=== PATIENT | female | born 2000 | race Caucasian/White ===

== ENCOUNTER 2019-06-10 13:08 | Outpatient (CLI) | payer SELFPAY | END 2019-06-10 13:09 | disposition home or self-care (01) | LOC: SPT 13:08 | PROVIDERS: Family Provider Nurse Practitioner; Visit Provider Orthopaedic Surgery | DX: Z46.89 Encounter for fitting and adjustment of other specified devices (principal); S82.141D Displaced bicondylar fracture of right tibia, subsequent encounter for closed fracture with routine healing; X58.XXXD Exposure to other specified factors, subsequent encounter | CPT/HCPCS: L1832 ==

== ENCOUNTER → 2019-06-25 08:12 | Outpatient (BNVA) | payer SELFPAY | PROVIDERS: Family Provider Nurse Practitioner; Visit Provider Orthopaedic Surgery | DX: M79.671 Pain in right foot (principal); M25.571 Pain in right ankle and joints of right foot; S82.141A Displaced bicondylar fracture of right tibia, initial encounter for closed fracture; S82.401A Unspecified fracture of shaft of right fibula, initial encounter for closed fracture; X58.XXXA Exposure to other specified factors, initial encounter | CPT/HCPCS: 73562; 73610; 73630 ==

== ENCOUNTER → 2019-07-09 09:51 | Outpatient (BNVA) | payer SELFPAY | PROVIDERS: Family Provider Nurse Practitioner; Visit Provider Orthopaedic Surgery | DX: S82.141A Displaced bicondylar fracture of right tibia, initial encounter for closed fracture (principal); M79.673 Pain in unspecified foot; M25.579 Pain in unspecified ankle and joints of unspecified foot; X58.XXXA Exposure to other specified factors, initial encounter | CPT/HCPCS: 73562 ==

== ENCOUNTER → 2024-05-04 11:52 | Outpatient (BNVA) | payer BC, MEDICAID, SELFPAY | PROVIDERS: Family Provider Nurse Practitioner; Visit Provider Nurse Practitioner Women's Health | DX: N92.6 Irregular menstruation, unspecified (principal) | CPT/HCPCS: 82670; 83001; 83002; 83036; 83525; 84146; 84402; 84403; 84443; 84702 ==

== ENCOUNTER → 2024-05-18 11:07 | Outpatient (BNVA) | payer BC, MEDICAID, SELFPAY | PROVIDERS: Family Provider Nurse Practitioner; Visit Provider Nurse Practitioner Women's Health | DX: N92.6 Irregular menstruation, unspecified (principal) | CPT/HCPCS: 76830 ==

== ENCOUNTER → 2024-08-23 09:14 | Outpatient (BNVA) | payer BC, MEDICAID, SELFPAY | PROVIDERS: Family Provider Nurse Practitioner; Visit Provider Nurse Practitioner Women's Health | DX: E28.2 Polycystic ovarian syndrome (principal) | CPT/HCPCS: 84402; 84403 ==

== ENCOUNTER → 2024-11-18 12:45 | Outpatient (BNVA) | payer MEDICAID, SELFPAY | PROVIDERS: Family Provider Nurse Practitioner; Visit Provider Nurse Practitioner Women's Health | DX: Z12.4 Encounter for screening for malignant neoplasm of cervix (principal) | CPT/HCPCS: 87624 ==

== ENCOUNTER 2024-12-24 17:32 | Emergency (ER) | payer SELFPAY ==
[2024-12-24 18:15] VITALS: BP 121/70; PULSE 70; RESP 18; TEMP 36.7; O2SAT 99
--- NOTE | 2024-12-24 19:41 | CTR_ITS ---
PROCEDURE INFORMATION: Exam: CT Abdomen And Pelvis With Contrast Exam date and time: 12/24/2024 8:45 PM Age: 24 years old Clinical indication: Abdominal pain; Generalized; C/O diffuse abd pain; Additional info: Diffuse 8/10 abd pain TECHNIQUE: Imaging protocol: Computed tomography of the abdomen and pelvis with contrast. Radiation optimization: All CT scans at this facility use at least one of these dose optimization techniques: automated exposure control; mA and/or kV adjustment per patient size (includes targeted exams where dose is matched to clinical indication); or iterative reconstruction. Contrast material: OMNI 350; Contrast volume: 100 ml; Contrast route: INTRAVENOUS (IV); COMPARISON: US transvaginal [id number] 05/18/2024 11:18 AM RADIATION DOSE METRICS: Total DLP (mGy-cm): 486.31 FINDINGS: Liver: No discrete liver lesions are apparent. Smooth hepatic contour. Gallbladder and biliary ducts: Heterogeneous appearance of the gallbladder lumen suggesting gallstones and/or sludge. No gallbladder distension however. Pancreas: No evidence of pancreatitis. No ductal dilation. Spleen: Spleen appears mildly prominent measuring 13.2 cm on coronal imaging. Adrenal glands: Adrenal glands are within expected limits. Kidneys and ureters: Left renal cortical cyst measuring 1.5 cm. Smaller subcentimeter foci too small to characterize. Tiny nonobstructive calculus at the lower pole of the left kidney. Right kidney is unremarkable. No ureteral stones or hydronephrosis. Stomach and bowel: Small bowel is normal caliber. No obstruction. Large bowel within normal limits. No inflammatory wall thickening or abnormal bowel dilatation. Appendix: No evidence of appendicitis. Intraperitoneal space: No free air. No significant fluid collection. Vasculature: No abdominal aortic aneurysm. Lymph nodes: No pathologically enlarged lymph nodes by CT size criteria. Urinary bladder: Unremarkable as visualized. Reproductive: Unremarkable as visualized. Bones/joints: No acute osseous abnormalities. Soft tissues: Unremarkable. CT/CT abdomen pelvis w con* [id number] IMPRESSION: 1. No acute abdominal or pelvic abnormalities are identified to explain patient's symptoms. 2. Mild splenomegaly. 3. Cholelithiasis or gallbladder sludge. 4. Nonobstructive left nephrolithiasis.
[2024-12-24 19:42] VITALS: BP 119/96; PULSE 82; RESP 16; O2SAT 100
--- NOTE | 2024-12-24 19:45 | W.ED.ABDPA2 ---
HPI - Abdominal Pain General: Chief Complaint: Abdominal Pain Stated Complaint: abd pain pcp sent Time Seen by Provider: 12/24/24 19:27 Source: patient Mode of arrival: ambulatory Limitations: no limitations History of Present Illness: Patient is a 24-year-old female with no pertinent past medical history reporting to emergency department planing of diffuse abdominal pain for the past 2 weeks. States it is currently an 8/10 but will be a 20/10 with any ambulation. States overall it has been intermittent but today has become more constant. Denies any previous abdominal surgeries. Notes that she started having diarrhea today, no bloody stools. No urinary symptoms or vaginal bleeding/discharge. She states that her last normal menstrual period was beginning of this month and was regular. States there might be possibility of however her home tests have been negative. Pain reported to be all over, no specific point tenderness and no radiation to her back. She is noting some occasional chest pain or shortness of breath. Denies any fever, chills, vomiting, or any symptoms otherwise. Her vitals are stable at this time, she is afebrile and nontoxic-appearing. MD elicited complaint: abdominal pain Pertinent past history: none Onset (ago): week(s) Pain Consistency: intermittent (Has been constant today) Location: Diffuse Severity: severe Pain scale (0-10): 8 Exacerbating factors: movement Associated Symptoms: Reports diarrhea; Denies bloating, chills, constipation, dysuria, fever(s), hematochezia, nausea and vomiting Related Data Previous Rx's ?Medication ?Instructions ?Recorded Zafemy 150 mcg-35 mcg/24 hr 1 patch transdermal Q7D #3 ea 11/18/24 transdermal patch (norelgestromin-ethin.estradiol) ondansetron 4 mg disintegrating 4 mg PO TID PRN nausea and 12/24/24 tablet vomiting #30 tabs Allergies Allergy/AdvReac Type Severity Reaction Status Date / Time No Known Allergies Allergy Verified 11/18/24 11:27 Review of Systems General: Reports: 10 or more systems reviewed and unremarkable except in HPI and below Const: Denies: fever(s), chills, change in appetite, change in weight or diaphoresis ENMT: Denies: throat pain or hoarseness Card: Reports: chest pain; Denies: palpitations or lightheadedness Resp: Reports: dyspnea; Denies: productive cough or wheezing GI: Reports: abdominal pain and diarrhea; Denies: nausea, vomiting, constipation, bloating or hematochezia : Denies: flank pain, difficulty voiding, dysuria, urinary frequency, urinary urgency, vaginal bleeding, vaginal discharge or irregular period Musc: Denies: neck pain or back pain Skin/Breast: Denies: rash or new lesions Neuro: Denies: headache(s) or dizziness PFSH ED PFSH: Medical History No pertinent past medical history neghx: htn, dm, thyroid, dvt/pe PCP: Nate Closed fracture of right tibial plateau Family History Denies family history of Colon cancer Ovarian cancer Diabetes Heart disease Breast cancer Hypertension Uterine cancer Thyroid disease Stroke Social History Smoking and tobacco/nicotine status: current some day tobacco/nicotine user (vape) Alcohol intake: never Substance/Drug Use: never Physical Exam Const: COMMON NORMALS: no acute distress, average body habitus, patient oriented x3, no limitations, healthy appearing, alert and well nourished GENERAL APPEARANCE: cooperative and comfortable ORIENTATION/CONSCIOUSNESS: Yes awake Neck/C-Spine: COMMON NORMALS: full ROM, supple and no meningeal signs Resp: COMMON NORMALS: normal respiratory effort, No retractions, No use of accessory muscles and clear to auscultation bilaterally AUSCULTATION: clear to auscultation bilaterally, no crackles, no rales, no rhonchi and no wheezes Cardio: COMMON NORMALS: regular rate, regular rhythm, No gallops present (Cardio), No clicks present (Cardio), No murmurs present (Cardio), No rub (Cardio) and Peripheral pulses 2+ throughout RATE: regular rate RHYTHM: regular rhythm PERIPHERAL PULSES: Peripheral pulses 2+ throughout GI: COMMON NORMALS: Normal to inspection, nondistended, normoactive bowel sounds present, Soft to palpation, No hepatosplenomegaly present and no masses AUSCULTATION: Yes normoactive bowel sounds PALPATION: Yes Soft to palpation, No Guarding due to palpation present (GI), No Rigid due to palpation and Yes No hepatosplenomegaly present RECTAL EXAM: deferred OTHER: Mild diffuse nonspecific tenderness to palpation Extremity: COMMON NORMALS: normal to inspection and full ROM Neuro: COMMON NORMALS: patient oriented x3, moves all extremities, no focal motor deficits and no sensory deficits noted SENSORIUM/ORIENTATION: Yes alert MENINGEAL SIGNS: Yes no meningeal signs Psych: COMMON NORMALS: mental status grossly normal, cooperative and speech normal SPEECH: Yes normal speech Skin: COMMON NORMALS: no rashes or lesions noted GENERAL SKIN EXAM: no rashes or lesions noted Course Vital Signs: Vital signs: Vital Signs Temperature 98.0 F 12/24/24 18:15 Pulse Rate 82 12/24/24 19:42 Respiratory Rate 16 12/24/24 21:00 Blood Pressure 129/75 12/24/24 21:00 Pulse Oximetry 97 12/24/24 21:00 Oxygen Delivery Me thod Room Air 12/24/24 21:00 MDM - Abdominal Pain Medical Decision Making Patient presented with diffuse abdominal pain for a couple of weeks, started having diarrhea today. Physical exam overall is unremarkable, some mild nonspecific tenderness palpation on exam but vitals have been stable she is nontoxic-appearing. No fevers or chills. No active vomiting here in the emergency department. All of her lab work was unremarkable, and abdomen/pelvis CT does not demonstrate any acute findings to explain her pain. I do not suspect this is an acute emergent process and she will be allowed discharge home. Encouraged to follow-up with primary care if she has persistence of symptoms and to return with any new or worsening. Lab Data 12/24/24 19:41 12/24/24 19:41 Labs/Radiology: Radiology Impressions Abdomen/Pelvis CT 12/24/24 19:41 IMPRESSION: 1. No acute abdominal or pelvic abnormalities are identified to explain patient's symptoms. 2. Mild splenomegaly. 3. Cholelithiasis or gallbladder sludge. 4. Nonobstructive left nephrolithiasis. Laboratory Results WBC 6.08 10^3/uL (3.29-11.43) 12/24/24 19:41 RBC 4.62 10^6/uL (3.85-5.65) 12/24/24 19:41 Hgb 13.20 g/dL (11.27-16.99) 12/24/24 19:41 Hct 40.1 % (36-47) 12/24/24 19:41 MCV 86.8 fl (85-98) 12/24/24 19:41 MCH 28.6 pg (27-33) 12/24/24 19:41 MCHC 32.9 g/dL (30-55) 12/24/24 19:41 RDW 12.4 % (12.1-15.1) 12/24/24 19:41 Plt Count 220 10^3/cmm (157-399) 12/24/24 19:41 MPV 10.8 fL (7.4-10.4) H 12/24/24 19:41 Neut % (Auto) 50.6 % 12/24/24 19:41 Lymph % (Auto) 38.0 % 12/24/24 19:41 [place] % (Auto) 7.9 % 12/24/24 19:41 Eos % (Auto) 2.6 % 12/24/24 19:41 Baso % (Auto) 0.7 % 12/24/24 19:41 Neut # (Auto) 3.08 10^3/uL (1.8-7.7) 12/24/24 19:41 Lymph # (Auto) 2.3 10^3/uL (0.8-4.8) 12/24/24 19:41 [place] # (Auto) 0.5 10^3/uL (0.2-0.9) 12/24/24 19:41 Eos # (Auto) 0.2 10^3/uL (0.0-0.8) 12/24/24 19:41 Baso # (Auto) 0.0 10^3/uL (0.0-0.1) 12/24/24 19:41 Nucleated RBC % (auto) 0 % 12/24/24 19:41 Nucleated RBCs # 0.0 /100WBC 12/24/24 19:41 Sodium 140 mmol/L (136-145) 12/24/24 19:41 Potassium 3.8 mmol/L (3.5-5.1) 12/24/24 19:41 Chloride 103 mmol/L (98-107) 12/24/24 19:41 Carbon Dioxide 25 mmol/L (22-29) 12/24/24 19:41 Anion Gap 15.8 (5-19) 12/24/24 19:41 BUN 15 mg/dL (6-20) 12/24/24 19:41 Creatinine 0.9 mg/dL (0.5-0.9) 12/24/24 19:41 GFR Calculation 75.7 mL/min (90-130) L 12/24/24 19:41 Glucose 90 mg/dL (65-115) 12/24/24 19:41 Calculated Osmolality 290 mOsm/kg (285-295) 12/24/24 19:41 Calcium 9.7 mg/dL (8.5-10.5) 12/24/24 19:41 Total Bilirubin 0.4 mg/dL (0.15-1.2) 12/24/24 19:41 AST 18 U/L (0-32) 12/24/24 19:41 ALT 17 U/L (0-33) 12/24/24 19:41 Alkaline Phosphatase 99 U/L (35-105) 12/24/24 19:41 Total Protein 7.6 g/dL (6.6-8.7) 12/24/24 19:41 Albumin 4.8 g/dL (3.5-5.2) 12/24/24 19:41 Globulin 2.8 g/dL (1.3-4.6) 12/24/24 19:41 Lipase 31 U/L (13-60) 12/24/24 19:41 HCG, Qual Negative (Negative) 12/24/24 19:41 Urine Color Yellow (Yellow) 12/24/24 19:52 Urine Appearance Clear (CLEAR) 12/24/24 19:52 Urine pH 6.5 (5-7) 12/24/24 19:52 Ur Specific [place] 1.019 (1.005-1.030) 12/24/24 19:52 Urine Protein Negative (Negative) 12/24/24 19:52 Urine Glucose (UA) Negative (Normal) 12/24/24 19:52 Urine Ketones Negative (Negative) 12/24/24 19:52 Urine Blood Negative (Negative) 12/24/24 19:52 Urine Nitrate Negative (Negative) 12/24/24 19:52 Urine Bilirubin Negative (Negative) 12/24/24 19:52 Urine Urobilinogen 1.0 mg/dL (Negative) 12/24/24 19:52 Ur Leukocyte Esterase Negative (Negative) 12/24/24 19:52 Urine RBC 0-2 /hpf (0-2) 12/24/24 19:52 Urine WBC 0-5 /hpf (0-5) 12/24/24 19:52 Ur Squamous Epith Cells 0-5 /hpf (0-5) 12/24/24 19:52 Amorphous Sediment Not Reportable 12/24/24 19:52 Urine Bacteria None seen /hpf (NONE) 12/24/24 19:52 Hyaline Casts 0-4 /lpf H 12/24/24 19:52 All radiology interpretation(s) finalized by discharge Discharge Plan Discharge Patient Disposition: Home Clinical Impression: Abdominal pain Condition: Stable Prescriptions: New ondansetron 4 mg tablet,disintegrating 4 mg PO TID PRN (Reason: nausea and vomiting) Qty: 30 0RF No Action norelgestromin-ethin.estradiol [Zafemy] 150-35 mcg/24 hr patch weekly 1 patch transdermal Q7D Qty: 3 10RF Rx Instructions: apply once weekly for 3 weeks of a 4-week cycle Discharge Orders: Discharge ED (Routine); Ordered 12/24/24 Ordered By: Ambrosio Hale Referrals: Melony Borden NP [Primary Care Provider, Unknown] Patient Instructions: Patient Portal & Emeka Instructions Activity Restrictions/Additional Instructions: Abdominal Pain Discharge You are being discharged today after evaluation for abdominal pain. Your tests, including blood work and a CT scan, did not show any urgent or dangerous problems. At this time, your pain is considered nonspecific, meaning no clear cause was found, which is common and often resolves with time. Medications: - You have been prescribed ondansetron (Zofran) for nausea. Take as directed. If you have questions about your medication, contact your pharmacy or provider. What to Expect: - Your pain may continue for a while but should gradually improve. - Most cases of nonspecific abdominal pain do not require surgery and resolve with supportive care Follow-Up: - Please schedule an appointment with your primary care provider within the next week for further evaluation and ongoing management. - If your symptoms persist or worsen, your provider may consider additional tests or referrals. Return to the Emergency Department Immediately If You Develop: - Severe or worsening abdominal pain - Persistent vomiting or inability to keep fluids down - Fever (temperature above 100.4?F/38?C) - Blood in your stool or vomit - New chest pain, shortness of breath, or fainting - Yellowing of the skin or eyes (jaundice) - Swelling or severe tenderness of the abdomen - Any other symptoms that concern you or feel different from your usual pain General Advice: - Rest and stay hydrated. - Eat small, bland meals as tolerated. - Avoid alcohol and non-prescribed medications. - Keep a record of your symptoms to share with your provider. If you have any questions or concerns, do not hesitate to contact your healthcare provider. Print Language: Nauruan Coding Level of Care Code ED Chinese Language Professor for Ania Marroquin
[2024-12-24 19:58] LABS: Hematocrit 40.1 % (36-47); Hemoglobin 13.20 g/dL (11.27-16.99); Mean Corpuscular HGB Conc 32.9 g/dL (30-55); Mean Corpuscular Hemoglobin 28.6 pg (27-33); Mean Corpuscular Volume 86.8 fl (85-98); Nucleated Red Blood Cells % 0 %; Platelet Count 220 10^3/cmm (157-399); Red Blood Count 4.62 10^6/uL (3.85-5.65); White Blood Count 6.08 10^3/uL (3.29-11.43)
[2024-12-24 20:03] LABS: Glucose Urine UA Negative (Normal); Nitrate Urine Negative (Negative); Specific Gravity, Urine 1.019 (1.005-1.030)
[2024-12-24 20:08] LABS: Add Urine Microscopic? YES
[2024-12-24 20:16] LABS: Alanine Aminotransferase 17 U/L (0-33); Albumin Level 4.8 g/dL (3.5-5.2); Alkaline Phosphatase 99 U/L (35-105); Anion Gap 15.8 (5-19); Aspartate Amino Transferase 18 U/L (0-32); Blood Urea Nitrogen 15 mg/dL (6-20); Calcium 9.7 mg/dL (8.5-10.5); Carbon Dioxide 25 mmol/L (22-29); Chloride 103 mmol/L (98-107); Creatinine Clr Calc Pharmacy 95.2019; Globulin 2.8 g/dL (1.3-4.6); Glucose 90 mg/dL (65-115); Lipase 31 U/L (13-60); Osmolality Calculated 290 mOsm/kg (285-295); Potassium 3.8 mmol/L (3.5-5.1); Sodium 140 mmol/L (136-145); Total Protein 7.6 g/dL (6.6-8.7)
[2024-12-24 20:26] LABS: HCG, Serum Qual Negative (Negative)
[2024-12-24] MEDS: iohexol 350 mg/mL 500 mL Btl (per mL) IV (20:47)
[2024-12-24 21:00] VITALS: BP 129/75; RESP 16; O2SAT 97
[2024-12-24 21:46] VITALS: BP 107/60; PULSE 75; RESP 16; O2SAT 100
== END 2024-12-24 21:41 | disposition home or self-care (01) ==
PROVIDERS: Emergency Provider Physician Assistant; PCP Nurse Practitioner Family
DX: R10.9 Unspecified abdominal pain (principal); F17.290 Nicotine dependence, other tobacco product, uncomplicated
CPT/HCPCS: 36415; 74177; 80053; 81001; 83690; 84703; 85025; 99285

== ENCOUNTER 2025-02-28 07:39 | Outpatient (CLI) | payer SELFPAY ==
--- NOTE | 2025-02-28 07:50 | US_ITS ---
WS: [id number] Complete ABDOMINAL ULTRASOUND HISTORY: ABDOMINAL PAIN/GERD COMPARISON: CT 12/24/2024 Liver: 12.7 cm in length. Normal size liver and echogenicity. No bile duct dilatation or mass. Portal Vein: Normal hepatopetal flow with monophasic waveform. Gallbladder: Numerous stones within the gallbladder. Lumen is filled with stones. No pericholecystic fluid. No gallbladder wall thickening. CBD: 0.2 cm Pancreas: Limited. Unremarkable as visualized. Right kidney: 9.3 cm x 5.1 x 3.8 cm. Cortex:1.0 cm. Normal size and echogenicity. No hydronephrosis or mass. Left kidney: 9.6 cm x 4.4 cm x 3.8 cm. Cortex: 1.2 cm. Hypoechoic mass lower pole measures 2.3 x 1.6 x 1.6 cm. Noted to be a cyst on a recent CT. No solid mass. Spleen: 11.5 cm. Normal size and echogenicity. Aorta and IVC: Unremarkable abdominal aorta and IVC. US/US abdomen complete* [id number] Impression: 1. Cholelithiasis. Numerous stones within the gallbladder. No evidence for acu te cholecystitis. Consider surgical evaluation. 2. No renal obstruction. 3. Simple cyst lower pole LEFT kidney, 2.3 cm.
== END 2025-02-28 07:40 | disposition home or self-care (01) ==
LOC: RAD 07:43
PROVIDERS: PCP Nurse Practitioner Family; Visit Provider Nurse Practitioner Family
DX: R10.9 Unspecified abdominal pain (principal); K21.9 Gastro-esophageal reflux disease without esophagitis; N28.1 Cyst of kidney, acquired; K80.21 Calculus of gallbladder without cholecystitis with obstruction
CPT/HCPCS: 76700

== ENCOUNTER 2025-03-04 11:26 | Emergency (ER) | payer SELFPAY ==
[2025-03-04 12:12] VITALS: BP 129/68; PULSE 69; RESP 16; TEMP 36.7; O2SAT 96; BMI 22.3
[2025-03-04 12:22] LABS: Hematocrit 45.0 % (36-47); Hemoglobin 14.60 g/dL (11.27-16.99); Mean Corpuscular HGB Conc 32.4 g/dL (30-55); Mean Corpuscular Hemoglobin 28.2 pg (27-33); Mean Corpuscular Volume 87.0 fl (85-98); Nucleated Red Blood Cells % 0 %; Platelet Count 182 10^3/cmm (157-399); Red Blood Count 5.17 10^6/uL (3.85-5.65); White Blood Count 5.83 10^3/uL (3.29-11.43)
[2025-03-04 12:44] LABS: Alanine Aminotransferase 21 U/L (0-33); Albumin Level 4.7 g/dL (3.5-5.2); Alkaline Phosphatase 84 U/L (35-105); Anion Gap 14.1 (5-19); Aspartate Amino Transferase 19 U/L (0-32); Blood Urea Nitrogen 13 mg/dL (6-20); Calcium 9.3 mg/dL (8.5-10.5); Carbon Dioxide 27 mmol/L (22-29); Chloride 104 mmol/L (98-107); Creatinine Clr Calc Pharmacy 84.3491; Globulin 2.9 g/dL (1.3-4.6); Glucose 79 mg/dL (65-115); Lipase 109 U/L (13-60); Osmolality Calculated 291 mOsm/kg (285-295); Potassium 4.1 mmol/L (3.5-5.1); Sodium 141 mmol/L (136-145); Total Protein 7.6 g/dL (6.6-8.7)
[2025-03-04 12:50] LABS: HCG, Serum Qual Negative (Negative)
--- NOTE | 2025-03-04 13:22 | W.ED.ABDPA2 ---
HPI - Abdominal Pain General: Chief Complaint: Abdominal Pain Stated Complaint: abd pain, n/v/d Time Seen by Provider: 03/04/25 12:05 Source: patient and old records reviewed Mode of arrival: ambulatory Limitations: no limitations History of Present Illness: This patient is a 24-year-old female who presents to the emergency department complaining of upper abdominal pain, that overall has been chronic but acutely worsening today. This patient had CT performed in December showing gallstones, yesterday had ultrasound showing gallstones again and there was recommendation of a surgical consult due to the prevalence. She has not followed up with surgery, states today she is here because she has had worsening pain associated with nausea and vomiting. She states that she has not received a call from [employer] surgery yet. Pain primarily to the epigastric portion but does radiate to the left upper and right upper quadrant. Denies any alcohol use. Denies any fevers or chills. Pain does not radiate into the back. Her vitals are stable she is afebrile at this time. Denying need for pain or nausea medicine. MD elicited complaint: abdominal pain Onset (ago): week(s) Pain Consistency: constant Location: Epigastric Severity: moderate Quality: cramping Radiation: LUQ and RUQ Associated Symptoms: Reports nausea and vomiting; Denies bloating, change in stool character, chills, constipation, diarrhea, dysuria, fever(s) and hematochezia Related Data Previous Rx's ?Medication ?Instructions ?Recorded Zafemy 150 mcg-35 mcg/24 hr 1 patch transdermal Q7D #3 ea 11/18/24 transdermal patch (norelgestromin-ethin.estradiol) ondansetron 4 mg disintegrating 4 mg PO TID PRN nausea and 12/24/24 tablet vomiting #30 tabs Allergies Allergy/AdvReac Type Severity Reaction Status Date / Time No Known Allergies Allergy Verified 11/18/24 11:27 Review of Systems General: Reports: 10 or more systems reviewed and unremarkable except in HPI and below Const: Denies: fever(s), chills, change in appetite, change in weight or diaphoresis ENMT: Denies: throat pain or hoarseness Card: Denies: chest pain, palpitations or lightheadedness Resp: Denies: dyspnea, productive cough or wheezing GI: Reports: abdominal pain, nausea and vomiting; Denies: diarrhea, constipation, bloating, change in stool character or hematochezia : Denies: flank pain, difficulty voiding, dysuria, urinary frequency or urinary urgency Musc: Denies: neck pain or back pain Skin/Breast: Denies: rash or new lesions Neuro: Denies: headache(s) or dizziness PFS ED PFSH: Medical History No pertinent past medical history neghx: htn, dm, thyroid, dvt/pe PCP: Nate Closed fracture of right tibial plateau Family History Denies family history of Colon cancer Ovarian cancer Diabetes Heart disease Breast cancer Hypertension Uterine cancer Thyroid disease Stroke Social History Smoking and tobacco/nicotine status: current some day tobacco/nicotine user (vape) Alcohol intake: never Substance/Drug Use: never Physical Exam Const: COMMON NORMALS: no acute distress, patient oriented x3, no limitations, healthy appearing, alert and well nourished GENERAL APPEARANCE: cooperative and comfortable ORIENTATION/CONSCIOUSNESS: Yes awake OTHER: Nontoxic Neck/C-Spine: COMMON NORMALS: full ROM, supple and no meningeal signs Resp: COMMON NORMALS: normal respiratory effort, No retractions, No use of accessory muscles and clear to auscultation bilaterally AUSCULTATION: clear to auscultation bilaterally, no crackles, no rales, no rhonchi and no wheezes Cardio: COMMON NORMALS: regular rate, regular rhythm, No gallops present (Cardio), No clicks present (Cardio), No murmurs present (Cardio) and No rub (Cardio) RATE: regular rate RHYTHM: regular rhythm GI: COMMON NORMALS: Normal to inspection, nondistended, normoactive bowel sounds present, Soft to palpation and no masses AUSCULTATION: Yes normoactive bowel sounds PALPATION: Yes Soft to palpation, Yes Tenderness to palpation present (GI) (Mild epigastric) and No Guarding due to palpation present (GI) Extremity: COMMON NORMALS: normal to inspection and full ROM Neuro: COMMON NORMALS: patient oriented x3, moves all extremities, no focal motor deficits and no sensory deficits noted SENSORIUM/ORIENTATION: Yes alert MENINGEAL SIGNS: Yes no meningeal signs Psych: COMMON NORMALS: mental status grossly normal, cooperative and speech normal SPEECH: Yes normal speech Skin: COMMON NORMALS: no rashes or lesions noted GENERAL SKIN EXAM: no rashes or lesions noted Course Vital Signs: Vital signs: Vital Signs Temperature 98.1 F 03/04/25 12:12 Pulse Rate 72 03/04/25 15:10 Respiratory Rate 16 03/04/25 12:12 Blood Pressure 110/68 03/04/25 15:10 Pulse Oximetry 95 03/04/25 15:10 Oxygen Delivery Me thod Room Air 03/04/25 14:30 MDM - Abdominal Pain Medical Decision Making Patient presented for upper abdominal pain this has been acute on chronic recently had upper abdominal ultrasound that showed stones but she states she is still having pain and has not gotten into see general surgery. Reports associated nausea vomiting but no fevers or chills at home. Lab work is ordered only abnormality is slightly elevated lipase with her diagnosis of stone to rule out any obstructive process so CT abdomen pelvis was ordered this time showing no evidence of cholecystitis or choledocholithiasis. She is stable for discharge home will follow-up with general surgery return with any worse Lab Data 03/04/25 12:17 03/04/25 12:17 Labs/Radiology: Radiology Impressions Abdomen/Pelvis CT 03/04/25 13:39 IMPRESSION: 1. Cholelithiasis. No CT evidence for cholecystitis. 2. Left kidney demonstrates a tiny nonobstructing stone and small simple cyst in the lower pole, both unchanged from prior. No follow-up required. 3. Some heterogeneous enhancement of the uterus, question adenomyosis. COMMENTS: Consistent with the [employer]'s Incidental Findings Committee white paper (J Am Jimena Radiol 2018): Any incidental renal lesion less than 1 cm or classified as too small to characterize, or any incidental cystic renal lesion characterized as simple-appearing, is likely benign. No follow-up imaging is recommended for these lesions per consensus recommendations based on imaging criteria. Laboratory Results WBC 5.83 10^3/uL (3.29-11.43) 03/04/25 12:17 RBC 5.17 10^6/uL (3.85-5.65) 03/04/25 12:17 Hgb 14.60 g/dL (11.27-16.99) 03/04/25 12:17 Hct 45.0 % (36-47) 03/04/25 12:17 MCV 87.0 fl (85-98) 03/04/25 12:17 MCH 28.2 pg (27-33) 03/04/25 12:17 MCHC 32.4 g/dL (30-55) 03/04/25 12:17 RDW 12.4 % (12.1-15.1) 03/04/25 12:17 Plt Count 182 10^3/cmm (157-399) 03/04/25 12:17 MPV 10.5 fL (7.4-10.4) H 03/04/25 12:17 Neut % (Auto) 60.0 % 03/04/25 12:17 Lymph % (Auto) 28.6 % 03/04/25 12:17 [place] % (Auto) 9.3 % 03/04/25 12:17 Eos % (Auto) 0.9 % 03/04/25 12:17 Baso % (Auto) 0.3 % 03/04/25 12:17 Neut # (Auto) 3.50 10^3/uL (1.8-7.7) 03/04/25 12:17 Lymph # (Auto) 1.7 10^3/uL (0.8-4.8) 03/04/25 12:17 [place] # (Auto) 0.5 10^3/uL (0.2-0.9) 03/04/25 12:17 Eos # (Auto) 0.1 10^3/uL (0.0-0.8) 03/04/25 12:17 Baso # (Auto) 0.0 10^3/uL (0.0-0.1) 03/04/25 12:17 Nucleated RBC % (auto) 0 % 03/04/25 12:17 Nucleated RBCs # 0.0 /100WBC 03/04/25 12:17 Sodium 141 mmol/L (136-145) 03/04/25 12:17 Potassium 4.1 mmol/L (3.5-5.1) 03/04/25 12:17 Chloride 104 mmol/L (98-107) 03/04/25 12:17 Carbon Dioxide 27 mmol/L (22-29) 03/04/25 12:17 Anion Gap 14.1 (5-19) 03/04/25 12:17 BUN 13 mg/dL (6-20) 03/04/25 12:17 Creatinine 0.9 mg/dL (0.5-0.9) 03/04/25 12:17 GFR Calculation 75.7 mL/min (90-130) L 03/04/25 12:17 Glucose 79 mg/dL (65-115) 03/04/25 12:17 Calculated Osmolality 291 mOsm/kg (285-295) 03/04/25 12:17 Calcium 9.3 mg/dL (8.5-10.5) 03/04/25 12:17 Total Bilirubin 0.3 mg/dL (0.15-1.2) 03/04/25 12:17 AST 19 U/L (0-32) 03/04/25 12:17 ALT 21 U/L (0-33) 03/04/25 12:17 Alkaline Phosphatase 84 U/L (35-105) 03/04/25 12:17 Total Protein 7.6 g/dL (6.6-8.7) 03/04/25 12:17 Albumin 4.7 g/dL (3.5-5.2) 03/04/25 12:17 Globulin 2.9 g/dL (1.3-4.6) 03/04/25 12:17 Lipase 109 U/L (13-60) H 03/04/25 12:17 HCG, Qual Negative (Negative) 03/04/25 12:17 Urine Color Yellow (Yellow) 03/04/25 13:24 Urine Appearance Cloudy (CLEAR) A 03/04/25 13:24 Urine pH 7.5 (5-7) 03/04/25 13:24 Ur Specific [place] 1.018 (1.005-1.030) 03/04/25 13:24 Urine Protein Negative (Negative) 03/04/25 13:24 Urine Glucose (UA) Negative (Normal) 03/04/25 13:24 Urine Ketones Negative (Negative) 03/04/25 13:24 Urine Blood Negative (Negative) 03/04/25 13:24 Urine Nitrate Negative (Negative) 03/04/25 13:24 Urine Bilirubin Negative (Negative) 03/04/25 13:24 Urine Urobilinogen 1.0 mg/dL (Negative) 03/04/25 13:24 Ur Leukocyte Esterase Negative (Negative) 03/04/25 13:24 Urine RBC 0-2 /hpf (0-2) 03/04/25 13:24 Urine WBC 0-5 /hpf (0-5) 03/04/25 13:24 Ur Squamous Epith Cells 0-5 /hpf (0-5) 03/04/25 13:24 Amorphous Sediment Not Reportable 03/04/25 13:24 Urine Bacteria None seen /hpf (NONE) 03/04/25 13:24 Hyaline Casts 0-4 /lpf H 03/04/25 13:24 All radiology interpretation(s) finalized by discharge Discharge Plan Discharge Patient Disposition: Home Clinical Impression: Chronic upper abdominal pain Cholelithiasis Qualifiers: Cholelithiasis location: gallbladder Cholecystitis presence: without cholecystitis Biliary obstruction: without biliary obstruction Qualified Code(s): K80.20 - Calculus of gallbladder without cholecystitis without obstruction Condition: Stable Prescriptions: No Action norelgestromin-ethin.estradiol [Zafemy] 150-35 mcg/24 hr patch weekly 1 patch transdermal Q7D Qty: 3 10RF Rx Instructions: apply once weekly for 3 weeks of a 4-week cycle ondansetron 4 mg tablet,disintegrating 4 mg PO TID PRN (Reason: nausea and vomiting) Qty: 30 0RF Discharge Orders: Discharge ED (Routine); Ordered 03/04/25 Ordered By: Ambrosio Hale Referrals: Melony Borden NP [Primary Care Provider, Unknown] Patient Instructions: Patient Portal & [facility] Instructions Activity Restrictions/Additional Instructions: Discharge Instructions: Cholelithiasis (Gallstones) Your Diagnosis You have been diagnosed with cholelithiasis, which means you have gallstones in your gallbladder. Your CT scan and blood work were normal, which is reassuring. You have been experiencing upper abdominal pain, and we are referring you to a surgeon to evaluate whether removing your gallbladder would help your symptoms. What to Expect You will be scheduled to see a general surgeon who will discuss treatment options with you. Most patients with symptomatic gallstones benefit from having their gallbladder removed (cholecystectomy), which is typically done through minimally invasive laparoscopic surgery Diet Recommendations While awaiting your surgery appointment, consider the following dietary modifications that may help reduce symptoms: - Avoid high-fat meals and fried foods, as these can trigger pain episodes - Limit refined sugars and sweet foods - Increase fiber intake through fruits, vegetables, and whole grains - Consider eating smaller, more frequent meals rather than large meals - Stay well hydrated Research suggests that diets high in fiber, moderate alcohol consumption (if you drink), and adequate vitamin C intake may be protective, while high-fat and high-sugar diets may worsen symptoms. Pain Management If you experience pain episodes at home: - [id number] anti-inflammatory medications like ibuprofen or naproxen can be effective for biliary pain - Take medications with food unless otherwise directed - Avoid lying flat immediately after eating When to Seek Emergency Care Go to the emergency department immediately if you experience any of the following warning signs: - Severe, persistent abdominal pain lasting more than 4-6 hours - Fever (temperature above 100.4?F or 38?C) - Yellowing of your skin or eyes (jaundice) - Persistent nausea and vomiting - Severe pain that prevents you from finding a comfortable position - Chills or shaking - Dark urine or pale-colored stools These symptoms could indicate complications such as acute cholecystitis (gallbladder infection), bile duct blockage, or pancreatitis, which require urgent medical attention. Follow-Up Care - Keep your appointment with the general surgeon - Bring a list of all your current medications to your surgery appointment - Write down any questions you have about the procedure - If you do not receive a surgery appointment within 2 weeks, please call your primary care provider Important Notes - Do not ignore worsening or frequent pain episodes - Keep track of when pain occurs and what seems to trigger it - this information will be helpful for your surgeon - Continue taking all your regular medications unless instructed otherwise If you have any questions or concerns before your surgery appointment, please contact your primary care provider. Stand Alone Forms: Work/School Release Print Language: Citizen Of [place] Coding Level of Care Code ED Manager [employer] for Ania Marroquin
[2025-03-04 13:31] LABS: Glucose Urine UA Negative (Normal); Nitrate Urine Negative (Negative); Specific Gravity, Urine 1.018 (1.005-1.030)
[2025-03-04 13:33] LABS: Add Urine Microscopic? YES
--- NOTE | 2025-03-04 13:39 | CTR_ITS ---
PROCEDURE INFORMATION: Exam: CT Abdomen And Pelvis With Contrast Exam date and time: 03/04/2025 2:05 PM Age: 24 years old Clinical indication: Abdominal pain; Epigastric; upper abd pain, lipase elevation, HX of gallstones TECHNIQUE: Imaging protocol: CT of the abdomen and pelvis with contrast. Radiation optimization: All CT scans at this facility use at least one of these dose optimization techniques: automated exposure control; mA and/or kV adjustment per patient size (includes targeted exams where dose is matched to clinical indication); or iterative reconstruction. Contrast material: OMNI 350; Contrast volume: 100 ml; Contrast route: INTRAVENOUS (IV); COMPARISON: 1. CT abdomen pelvis w con* [id number] 12/24/2024 8:45 PM 2. US abdomen complete* [id number] 02/28/2025 8:06 AM RADIATION DOSE METRICS: Total DLP (mGy-cm): 443.34 FINDINGS: Lungs: The visualized portions of the lung bases are normal. Heart: The heart is not enlarged. Liver: Liver is normal in size. There are no masses. No intrahepatic duct dilatation. Gallbladder and biliary ducts: One or more gallstones present. There is no evidence of gallbladder wall thickening or pericholecystic fluid. Pancreas: Pancreas is unremarkable. There are no masses. No pancreatic duct dilatation. Spleen: Spleen is normal in size and position. There are no splenic masses. Adrenal glands: The adrenal glands are normal. Kidneys and ureters: The kidneys are normal in size and symmetrical in function. There is a punctate stone in the lower pole of the left kidney, unchanged. This measures 1-2 mm. There is a 1.5 cm simple cyst also in the left lower pole. 5 mm cyst is seen in the left upper pole. No hydronephrosis. No ureteral stones are noted. Stomach and bowel: There is no evidence of bowel obstruction. There is no small bowel wall thickening. There is no large bowel wall thickening. There is no gastrointestinal diverticular disease. Appendix: The appendix is visualized and appears normal. Intraperitoneal space: Trace fluid in the cul-de-sac. No free air is appreciated. Vasculature: Unremarkable. No abdominal aortic aneurysm. Lymph nodes: No pathologically enlarged retroperitoneal adenopathy appreciated. Urinary bladder: Unremarkable as visualized. Reproductive: Uterus and adnexal structures appear normal in size for the patient's age. There is some heterogeneous enhancement in the uterus which is suspicious for possibility of adenomyosis. There is an incidental enhancing collapsing luteal follicle on the right. Bones/joints: The spine, sacroiliac joints, and hip joints are normal. Soft tissues: Soft tissues of the visible body wall demonstrate no masses, ectopic air or fluid collections. CT/CT abdomen pelvis w con* [id number] IMPRESSION: 1. Cholelithiasis. No CT evidence for cholecystitis. 2. Left kidney demonstrates a tiny nonobstructing stone and small simple cyst in the lower pole, both unchanged from prior. No follow-up required. 3. Some heterogeneous enhancement of the uterus, question adenomyosis. COMMENTS: Consistent with the [employer]'s Incidental Findings Committee white paper (J Am Jimena Radiol 2018): Any incidental renal lesion less than 1 cm or classified as too small to characterize, or any incidental cystic renal lesion characterized as simple-appearing, is likely benign. No follow-up imaging is recommended for these lesions per consensus recommendations based on imaging criteria.
[2025-03-04] MEDS: iohexol 350 mg/mL 500 mL Btl (per mL) IV (14:10)
[2025-03-04 14:30] VITALS: BP 121/67; PULSE 77; O2SAT 99
[2025-03-04 15:10] VITALS: BP 110/68; PULSE 72; O2SAT 95
== END 2025-03-04 15:10 | disposition home or self-care (01) ==
PROVIDERS: Emergency Provider Physician Assistant; PCP Nurse Practitioner Family
DX: K80.20 Calculus of gallbladder without cholecystitis without obstruction (principal); G89.29 Other chronic pain; F17.290 Nicotine dependence, other tobacco product, uncomplicated
CPT/HCPCS: 36415; 74177; 80053; 81001; 83690; 84703; 85025; 99285